=== PATIENT | male | born 1940 | race Caucasian/White ===

== ENCOUNTER 2018-07-02 15:58 | Inpatient (IN) ==
[2018-07-02] MEDS ORDERED: DILTIAZEM 25 MG/5 ML VIAL IV ONE (16:13)
[2018-07-02] MEDS ORDERED: DILTIAZEM 125 MG in DEXTROSE 5% IN WATER 100 ML IV SCH (16:15)
--- NOTE | 2018-07-02 16:15 | Emergency Department Note ---
General Adult HPI - General Chief complaint: Shortness of Breath/Dyspnea Stated complaint: cough since tuesday Time Seen by Provider: 07/02/18 16:07 Source: patient Mode of arrival: ambulatory - History of Present Illness HPI Narrative: This patient has had a nonproductive cough for the last several days some shortness of breath no chest pain is some swelling. He does have intermittent atrial fib is on Xarelto and has a heart rate of 154 although he was not really aware of that. - Related Data Home Medications Medication Instructions Recorded Confirmed rivaroxaban 20 mg tablet 20 mg PO QDAY 05/24/17 07/02/18 Previous Rx's Medication Instructions Recorded diltiazem CD 360 mg 360 mg PO QAM #90 cap 03/29/17 capsule,extended release 24 hr atorvastatin 20 mg tablet 20 mg PO QDAY #90 tab 08/25/17 levothyroxine 125 mcg tablet 125 mcg PO QDAY #90 tab 01/25/18 Allergies Allergy/AdvReac Type Severity Reaction Status Date / Time No Known Drug Allergies Allergy Verified 07/02/18 16:05 Review of Systems All systems ED: reviewed and negative except as stated. Past Medical History - Past Medical History [facility] Narrative: Medical History (Last Reviewed 01/27/17 @ 08:08 by Urbano Hopkins MD) Sleep apnea, unspecified (Chronic) Impetigo (Chronic) Hypothyroidism, acquired (Chronic) Hyperlipidemia (Chronic) Colonic polyp (Chronic) Bronchitis, acute (Chronic) URI (upper respiratory infection) (Chronic) Past Surgical History (Last Reviewed 01/27/17 @ 08:08 by Urbano Hopkins MD) History of appendectomy (Chronic) History of colonoscopy (Chronic 05/11/12) History of knee surgery (Chronic) Family History (Last Reviewed 01/27/17 @ 08:08 by Urbano Hopkins MD) Other Malignant neoplasm of breast Malignant neoplasm of ovary Medical history: Reports: atrial fibrillation - Social History smoking status: Former smoker Physical Exam Limitations: no limitations General appearance: alert Head: atraumatic Eye: Present: normal appearance ENT: normal exam Neck: Present: normal inspection Chest: Present: normal inspection Respiratory: Present: normal lung sounds bilaterally Cardiovascular: Present: tachycardia, irregular rhythm Abdominal: Present: soft. Absent: distention, tenderness Extremities: Present: pedal edema, pretibial edema Neurological: Present: alert Psychiatric: Present: normal affect Skin: Present: warm, dry Course Vital Signs Temperature 98.7 F 07/02/18 15:59 Pulse Rate 14 L 07/02/18 15:59 Respiratory Rate 20 07/02/18 15:59 Blood Pressure 113/75 07/02/18 15:59 Pulse Oximetry (%) 95 07/02/18 15:59 Temperature 98.7 F 07/02/18 15:59 Pulse Rate 106 H 07/02/18 18:31 Respiratory Rate 16 07/02/18 18:31 Blood Pressure 135/97 07/02/18 18:31 Pulse Oximetry (%) 97 07/02/18 18:31 Procedures - Cardioversion Pre-Shock Diagnosis: Atrial fibrillation Post-Shock Diagnosis: Sinus rhythm Sedation performed by: ED RN Joules - First Synchronized Shock: 100 (Unsuccessful) Joules - Second Synchronized Shock: 200 (Successful) Medical Decision Making - MDM Narrative Medical decision making narrative: Patient's lab work did show a BNP of 3700 with a negative troponin. Chest x-ray showed cardiomegaly but no pulmonary edema. I discussed the case with Dr. Batista after starting the patient on diltiazem. Because he is anticoagulated with Xarelto Dr. Batista felt we could probably go ahead and cardiovert him. That was done successfully with Versed and morphine sedation. He did require 200 J to convert him. He will be admitted to the hospital. - Lab Data Lab results reviewed: Yes I reviewed the patient's lab results. Result diagrams: 07/02/18 16:22 07/02/18 16:21 Lab Results 07/02/18 07/02/18 07/02/18 Range/Units 16:21 16:22 16:22 WBC 6.4 (4.5-11.0) K/mcL RBC 4.94 (4.50-5.90) M/mcL Hgb 15.7 (13.5-16.5) g/dL Hct 47.9 (41.0-55.0) % MCV 97.0 (80.0-100.0) fL MCH 31.9 (26.0-34.0) pg MCHC 32.8 (31.0-36.0) g/dL RDW 15.1 H (11.5-14.5) % Plt Count 184 (140-440) K/mcL MPV 9.6 (7.4-10.4) fL Gran % 54.2 (38.0-78.0) % Lymph % (Auto) 27.6 (15.5-49.0) % [place] % (Auto) 16.1 H (1.0-12.0) % Eos % (Auto) 1.6 (0.0-7.0) % Baso % (Auto) 0.5 (0.0-2.0) % Gran # 3.4 (1.8-8.0) K/mcL Lymph # (Auto) 1.8 (1.5-4.8) K/mcL [place] # (Auto) 1.0 H (0.1-0.9) K/mcL Eos # (Auto) 0.1 (0.0-0.7) K/mcL Baso # (Auto) 0 (0.0-0.3) K/mcL Sodium 137 (133-145) mmol/L Potassium 3.8 (3.3-5.1) mmol/L Chloride 102 (96-108) mmol/L Carbon Dioxide 22 (22-30) mmol/L Anion Gap 13.0 (8-16) BUN 16 (8-23) mg/dl Creatinine 1.0 (0.7-1.2) mg/dl GFR Calculation 73 Glucose 89 (70-105) mg/dL Calcium 8.9 (8.6-10.4) mg/dl Total Bilirubin 2.4 H (0.0-1.0) mg/dL AST 40 H (0-37) U/l ALT 23 (0-40) U/l Alkaline Phosphatase 235 H (39-117) U/L Troponin T < 0.01 (0-0.03) ng/ml NT-Pro-B Natriuret Pep 3719.0 H (0-450) pg/ml Total Protein 7.3 (5.9-8.4) gm/dL Albumin 3.8 (3.2-5.2) gm/dL Globulin 3.5 (2.2-3.7) gm/dL Albumin/Globulin Ratio 1.1 (1.0-2.3) - Radiology Data Radiology results reviewed: Yes I reviewed the patient's radiology results. Disposition Pt seen by [facility]/PA only: No Clinical Impression: Atrial fibrillation, Congestive heart failure Disposition: Xfer As Outpt/Obs ([facility]) Condition: Good Referrals: Urbano Hopkins MD [Primary Care Provider] - Time of Disposition: 19:04
--- NOTE | 2018-07-02 17:10 | XRay Report ---
INDICATION: Cough. Dyspnea. TECHNIQUE: AP chest x-ray,portable upright COMPARISON: Previous chest x-rays dated 01/30/2014, 11/06/2004 FINDINGS:There is cardiomegaly. Pulmonary vascularity is unremarkable. No pulmonary congestion or pulmonary edema. No focal pulmonary parenchymal infiltrate or mass. No evidence for pleural fluid. IMPRESSION: 1. Cardiomegaly 2. No pulmonary edema or pulmonary congestion. No focal parenchymal infiltrate Interpreted and Authenticated by: Jan Woods 07/02/18
[2018-07-02 17:18] LABS: Basophils # (Auto) 0 K/mcL (0.0-0.3); Basophils % (Auto) 0.5 % (0.0-2.0); Eosinophils # (Auto) 0.1 K/mcL (0.0-0.7); Eosinophils % (Auto) 1.6 % (0.0-7.0); Granulocytes % (Auto) 54.2 % (38.0-78.0); Lymphocytes # (Auto) 1.8 K/mcL (1.5-4.8); Lymphocytes % (Auto) 27.6 % (15.5-49.0); Mean Corpuscular HGB Conc 32.8 g/dL (31.0-36.0); Monocytes % (Auto) 16.1 % (1.0-12.0); Platelet Count 184 K/mcL (140-440); RBC 4.94 M/mcL (4.50-5.90); Red Cell Distribution Width 15.1 % (11.5-14.5)
[2018-07-02 18:13] LABS: ALT/SGPT 23 U/l (0-40); Albumin 3.8 gm/dL (3.2-5.2); Albumin/Globulin Ratio 1.1 (1.0-2.3); Alkaline Phosphatase 235 U/L (39-117); Blood Urea Nitrogen 16 mg/dl (8-23)
[2018-07-02] MEDS ORDERED: MIDAZOLAM 5 MG/5 ML VIAL IV ONE (18:34)
[2018-07-02] MEDS ORDERED: MIDAZOLAM 2 MG/2 ML VIAL ONE (18:39)
--- NOTE | 2018-07-02 20:28 | Internal Med History&Physical ---
Medical - H&P: [facility] Patient information: Note initiated : 07/02/18 at 8:24 pm Service Date, if different from initiated Date: [] Patient: Jd Díaz a 77 y/o M admitted on for cough since tuesday. Chief Complaint: [] History of present illness: Mr. Díaz is a 77 year old M ED with consistent dry cough for the past 5 days as kept him up at night. Patient has become so weak and when he has severe coughing episodes he gets short of breath. Thus family brought him in the ED. He does have some increased swelling in his legs but he could not tell me over what timeframe this has occurred. He does have some swelling in his legs at baseline, just states it feels its little bit worse now. And is becoming so weak and tired and sleeping a lot. In the ED is found to be in A. fib with heart rates in the 150s. He had an elevated proBNP of 3700 with the negative troponin, chest x-ray with cardiomegaly but no kailey edema. Patient has been on anticoagulation for A. fib and had been cardioverted in the past by his field service technician poultry in [place]. Patient was cardioverted in our ED and converted to normal sinus rhythm. I visited with him he is still sedated from the procedure but a little to be aroused participate in exam. The cough is been dry and he is present mention keeping him up at night. Has not slept well for a week. No sick contacts but his says he is susceptible to bronchitis and gets it every so often. He denies any heartburn or sour taste and smell in the morning or history of acid reflux. He is on his CPAP for obstructive sleep apnea. He denies chest pain fevers or chills nausea or vomiting. Review of Systems: Pertinent positives as above. Denies headache/fever/chills/nausea/vom iting/chest or abdominal pain/diarrhea. Remaining 10 point review of system reviewed negative Medical - H&P: PMH Medical history: Medical History (Last Reviewed 01/27/17 @ 08:08 by Urbano Hopkins MD) Sleep apnea, unspecified (Chronic) Impetigo (Chronic) Hypothyroidism, acquired (Chronic) Hyperlipidemia (Chronic) Colonic polyp (Chronic) Bronchitis, acute (Chronic) URI (upper respiratory infection) (Chronic) Obstructive sleep apnea Atrial fibrillation Past Surgical History (Last Reviewed 01/27/17 @ 08:08 by Urbano Hopkins MD) History of appendectomy (Chronic) History of colonoscopy (Chronic 05/11/12) History of knee surgery (Chronic) Family History (Last Reviewed 01/27/17 @ 08:08 by Urbano Hopkins MD) Other Malignant neoplasm of breast Malignant neoplasm of ovary Social History (Last Updated 01/23/18 @ 14:11 by Urbano Hopkins MD) Patient denies tobacco Drinks alcohol socially Lives with his at home Medical - H&P: Meds Home Medications Medication Instructions Recorded Confirmed Type diltiazem CD 360 mg 360 mg PO QAM #90 cap 03/29/17 07/02/18 Rx capsule,extended release 24 hr rivaroxaban 20 mg tablet 20 mg PO QDAY 05/24/17 07/02/18 History atorvastatin 20 mg tablet 20 mg PO QDAY #90 tab 08/25/17 07/02/18 Rx levothyroxine 125 mcg tablet 125 mcg PO QDAY #90 tab 01/25/18 07/02/18 Rx Allergies Allergy/AdvReac Type Severity Reaction Status Date / Time No Known Drug Allergies Allergy Verified 07/02/18 16:05 Medical - H&P: Exam - Constitutional Vitals: Temp Pulse Resp BP Pulse Ox 98.7 F 86 19 130/84 98 07/02/18 15:59 07/02/18 20:01 07/02/18 20:01 07/02/18 20:01 07/02/18 20:01 Exam: General: Drowsy but awakens post procedure, No acute Distress Eyes/N/T: EOMI, PEERL, Head/Neck: neck supple, normocephalic atraumatic CV: RRR, No murmurs, normal s1/s2 Pulm: Clear b/l, no wheezing/rhonchi/rales Abd: soft, nontender, +BS x4 Ext: no clubbing/cyanosis, 2+ bilateral lower extremity edema Neuro: Drowsy, no focal deficits, moves all extremities, CN 2-12 grossly intact, symmetrical strength b/l upper/lower, sensations intact b/l upper/lower Skin: warm/dry Medical - H&P: Reslt - Labs CBC & Chem 7: 07/02/18 16:22 07/02/18 16:21 Labs: Short CBC 07/02/18 Range/Units 16:22 WBC 6.4 (4.5-11.0) K/mcL Hgb 15.7 (13.5-16.5) g/dL Hct 47.9 (41.0-55.0) % Plt Count 184 (140-440) K/mcL BMP 07/02/18 16:21 Sodium 137 Potassium 3.8 Chloride 102 Carbon Dioxide 22 BUN 16 Creatinine 1.0 Glucose 89 Calcium 8.9 Cardiac Enzymes 07/02/18 Range/Units 16:22 Troponin T < 0.01 (0-0.03) ng/ml Liver Function 07/02/18 Range/Units 16:21 Total Bilirubin 2.4 H (0.0-1.0) mg/dL AST 40 H (0-37) U/l ALT 23 (0-40) U/l Alkaline Phosphatase 235 H (39-117) U/L Albumin 3.8 (3.2-5.2) gm/dL - Impressions Chest x-ray with cardiomegaly no kailey edema Medical - H&P: A/P - Narrative A/P Narrative: A: *Acute Bronchitis: likely precipitating factor to below *AFib rVR: Cardioverted to NSR in ED, rate now 80s *Acute likely chronic CHF: 2/2 above *Hypothyroidism *NEREYDA on CPAP *Obesity: * * P: -IV lasix -echo -cont home dilt, prn lopressor -check Mag/TSH -resp viral panel -ppi -home cpap - -ppx: xaralto
[2018-07-02] MEDS ORDERED: POTASSIUM CHLORIDE 20 MEQ TABLET PO PRN ×2 (21:13)
[2018-07-02] MEDS ORDERED: POLYETHYLENE GLYCOL 3350 17 GM PACKET PO PRN (21:13)
[2018-07-02] MEDS ORDERED: PROMETHAZINE 25 MG TABLET PO PRN (21:13)
[2018-07-02] MEDS ORDERED: IPRATROPIUM/ALBUTEROL 3 ML AMPUL.NEB NEB PRN (21:13)
[2018-07-02] MEDS ORDERED: MAGNESIUM SULFATE 2 GM/50 ML BAG IV PRN (21:13)
[2018-07-02] MEDS ORDERED: SENNOSIDES 1 TABLET PO PRN (21:13)
[2018-07-02] MEDS ORDERED: FUROSEMIDE 40 MG/4 ML VIAL IV ONE (21:13)
[2018-07-02] MEDS ORDERED: POTASSIUM CHLORIDE 40 MEQ in DEXTROSE 5% IN WATER 500 ML IV PRN (21:13)
[2018-07-02] MEDS ORDERED: LACTULOSE 20 GM/30 ML ORAL.SOL PO PRN (21:13)
[2018-07-02] MEDS ORDERED: ONDANSETRON 4 MG/2 ML VIAL IV PRN (21:13)
[2018-07-02] MEDS ORDERED: METOPROLOL TARTRATE 5 MG/5 ML VIAL IV PRN (21:25)
[2018-07-02] MEDS ORDERED: diphenhydrAMINE 25 MG CAPSULE PO ONE (21:30)
[2018-07-02] MEDS: METOPROLOL TARTRATE 5 MG/5 ML VIAL IV PRN ×2 (21:50→23:27)
[2018-07-02] MEDS: 0.9 % SODIUM CHLORIDE 10 ML SYRINGE IV SCH (21:57)
[2018-07-02] MEDS: DOCUSATE SODIUM 100 MG CAPSULE PO SCH (23:26)
[2018-07-02] MEDS: FAMOTIDINE 20 MG TABLET PO SCH (23:27)
[2018-07-03] MEDS: DILTIAZEM 125 MG in DEXTROSE 5% IN WATER 100 ML IV SCH ×4 (00:08→20:26)
[2018-07-03] MEDS ORDERED: DILTIAZEM 125 MG/25 ML VIAL IV ONE (00:20)
[2018-07-03 05:35] LABS: Basophils # (Auto) 0 K/mcL (0.0-0.3); Basophils % (Auto) 0.3 % (0.0-2.0); Eosinophils # (Auto) 0 K/mcL (0.0-0.7); Eosinophils % (Auto) 0.4 % (0.0-7.0); Granulocytes % (Auto) 72.2 % (38.0-78.0); Lymphocytes # (Auto) 1.1 K/mcL (1.5-4.8); Mean Corpuscular HGB Conc 32.6 g/dL (31.0-36.0); Monocytes # (Auto) 0.9 K/mcL (0.1-0.9); Monocytes % (Auto) 12.1 % (1.0-12.0); Platelet Count 171 K/mcL (140-440); RBC 4.94 M/mcL (4.50-5.90); Red Cell Distribution Width 15.1 % (11.5-14.5)
[2018-07-03] MEDS: 0.9 % SODIUM CHLORIDE 10 ML SYRINGE IV SCH ×3 (05:39→22:00)
[2018-07-03 06:02] LABS: ALT/SGPT 22 U/l (0-40); Albumin 3.7 gm/dL (3.2-5.2); Albumin/Globulin Ratio 1.1 (1.0-2.3); Alkaline Phosphatase 228 U/L (39-117); Bilirubin,Direct 0.7 mg/dL (0.0-0.3); Blood Urea Nitrogen 13 mg/dl (8-23); Gamma Glutamyl Transpeptidase 262 U/L (8-61)
--- NOTE | 2018-07-03 06:25 | Internal Med Progress Note ---
Medical - PN: Subj Patient information: Note initiated : 07/03/18 at 6:18 am Service Date, if different from initiated Date: [] Patient: Jd Díaz 77 y/o M admitted on 07/02/18 for cough since tuesday. Chief Complaint: [] Interval history: Mr. Díaz is a 77 year old M ED with consistent dry cough for the past 5 days as kept him up at night. Patient has become so weak and when he has severe coughing episodes he gets short of breath. Thus family brought him in the ED. He does have some increased swelling in his legs but he could not tell me over what timeframe this has occurred. He does have some swelling in his legs at baseline, just states it feels its little bit worse now. And is becoming so weak and tired and sleeping a lot. In the ED is found to be in A. fib with heart rates in the 150s. He had an elevated proBNP of 3700 with the negative troponin, chest x-ray with cardiomegaly but no kailey edema. Patient has been on anticoagulation for A. fib and had been cardioverted in the past by his java golden gate developer in [place]. Patient was cardioverted in our ED and converted to normal sinus rhythm. I visited with him he is still sedated from the procedure but a little to be aroused participate in exam. The cough is been dry and he is present mention keeping him up at night. Has not slept well for a week. No sick contacts but his says he is susceptible to bronchitis and gets it every so often. He denies any heartburn or sour taste and smell in the morning or history of acid reflux. He is on his CPAP for obstructive sleep apnea. He denies chest pain fevers or chills nausea or vomiting. 5/6 Cough last night difficult sleep. Feels a little bit better overall but Tired. Feels a swelling in his leg is improving already. Is on a diltiazem drip at 15 with a heart rate 90s to 100. No chest pain. Did have one episode of nausea vomiting while eating breakfast. Review of Systems: denies headache/fever/chills/chest or abdominal pain/diarrhea. Otherwise see above. - Constitutional Vitals: Vital Signs Temp Pulse Resp BP Pulse Ox 100.2 F H 102 H 26 H 124/96 95 07/03/18 04:00 07/02/18 22:55 07/03/18 05:14 07/03/18 05:14 07/03/18 05:14 Period Temp Pulse Resp BP Sys/Gutierres Pulse Ox Last 24 Hr 97.3 F-100.2 F 14-157 10-32 99-153/66-135 87-99 Intake and Output 07/02/18 07/03/18 07/03/18 21:59 05:59 13:59 Intake Total 502 756 Output Total 2400 Balance 502 -1644 Weight 99.11 kg Intake & Output: Intake & Output 07/02/18 07/03/18 07/03/18 21:59 05:59 13:59 Intake Total 502 756 Output Total 2400 Balance 502 -1644 Weight 99.11 kg Intake: IV 22 6 Cardizem 125 mg In Dextrose 5% 22 6 in Water 100 ml @ 5 MG/HR 5 mls /hr IV Q12H [facility] Rx#:[id number] Oral 480 750 Output: Void Amount 2400 Other: Meal Dinner Percent of Meal Consumed 100% Exam: General: alert, awake, No acute Distress Eyes/N/T: EOMI, , Head/Neck: neck supple, CV: irreg irreg, No murmurs, Pulm: Clear b/l, no wheezing/rhonchi/rales Abd: soft, nontender, +BS x4 Ext: no clubbing/cyanosis, 1+ bilateral lower extremity edema - improved Neuro: alert and awake, no focal deficits, moves all extremities, Skin: warm/dry Medical - PN: Obj Da - Labs CBC & Chem 7: 07/03/18 04:00 07/03/18 04:00 Labs: Abnormal Lab Results 07/03/18 07/03/18 07/02/18 04:00 04:00 16:22 RDW 15.1 H 15.1 H Lymph % (Auto) 15.0 L [place] % (Auto) 12.1 H 16.1 H Lymph # (Auto) 1.1 L [place] # (Auto) 1.0 H Glucose 125 H Phosphorus 2.4 L Total Bilirubin 2.5 H Direct Bilirubin 0.7 H GGT 262 H AST 38 H Alkaline Phosphatase 228 H Lactate Dehydrogenase 271 H NT-Pro-B Natriuret Pep 4454.0 H 07/02/18 16:21 RDW Lymph % (Auto) [place] % (Auto) Lymph # (Auto) [place] # (Auto) Glucose Phosphorus Total Bilirubin 2.4 H Direct Bilirubin GGT AST 40 H Alkaline Phosphatase 235 H Lactate Dehydrogenase NT-Pro-B Natriuret Pep 3719.0 H Meds: Medications Acetaminophen (Tylenol) 650 mg PO Q6HP PRN PRN Reason: PAIN/FEVER > 101 Albuterol/Ipratropium (Duoneb) 3 ml NEB Q4HP PRN PRN Reason: Shortness Of Breath Atorvastatin Calcium (Lipitor) 20 mg PO QDAY [facility] Diltiazem HCl (Cardizem Cd) 360 mg PO DAILY [facility] Docusate Sodium (Colace) 100 mg PO BID [facility] Last Admin: 07/02/18 23:26 Dose: 100 mg Documented by: Famotidine (Pepcid) 20 mg PO BID [facility] Last Admin: 07/02/18 23:27 Dose: 20 mg Documented by: Potassium Chloride 40 meq/ (Dextrose) 520 mls @ 130 mls/hr IV UD PRN PRN Reason: Potassium < 3 Magnesium Sulfate (Magnesium Sulfate) 2 gm in 50 mls @ 50 mls/hr IV UD PRN PRN Reason: Magnesium </= 1.6 Diltiazem HCl 125 mg/ Dextrose 125 mls @ 5 mls/hr IV Q12H [facility]; Protocol Last Titration: 07/03/18 01:17 Dose: 15 mg/hr, 15 mls/hr Documented by: Lactulose (Cephulac) 10 gm PO DAILYP PRN PRN Reason: Constipation Levothyroxine Sodium (Synthroid) 125 mcg PO ACB [facility] Metoprolol Tartrate (Lopressor) 5 mg IV Q2HP PRN PRN Reason: Tachyarrhythmias HR > 110 Last Admin: 07/02/18 23:27 Dose: 5 mg Documented by: Ondansetron HCl (Zofran) 4 mg IV Q4HP PRN PRN Reason: Nausea And Vomiting Polyethylene Glycol (Miralax) 17 gm PO DAILYP PRN PRN Reason: Constipation Potassium Chloride (Kdur) 40 meq PO UD PRN PRN Reason: Potssium is 3-3.5 Potassium Chloride (Kdur) 40 meq PO UD PRN PRN Reason: Potassium < 3 Promethazine HCl (Phenergan) 0 mg PO Q6HP PRN PRN Reason: Nausea And Vomiting Rivaroxaban (Xarelto) 20 mg PO QPMCC [facility] Senna (Senokot) 2 tab PO HSP PRN PRN Reason: Constipation Sodium Chloride (Saline Flush) 10 ml IV Q8 [facility] Last Admin: 07/03/18 05:39 Dose: 10 ml Documented by: Throat Lozenges (Cepacol) 1 lozenge PO PRN PRN PRN Reason: Sore Throat Medical - PN: A/P - Time Spent With Patient Total time spent is greater than 50% in coordination of care (as documented) at patient's floor/unit and/or counseling patient: - Narrative A/P Narrative: A: *Acute Bronchitis 2/2 (+) Parainfluenza: likely precipitating afib rvr / chf *AFib rVR: Cardioverted to NSR in ED, but went back into Afib after transfer to inpt *Acute on likely chronic CHF: 2/2 above *Hypothyroidism *NEREYDA on CPAP *Obesity: * * P: -IV lasix -echo -wean dilt gtt to home PO dilt and prn lopressor -ppi -home cpap - -ppx: Xarelto Medical - PN: Qual - VTE Deep Vein Thrombosis/Pulmonary Embolism Present on Admission: No
[2018-07-03] MEDS ORDERED: FUROSEMIDE 40 MG/4 ML VIAL IV ONE (07:37)
[2018-07-03] MEDS: LEVOTHYROXINE 125 MCG TABLET PO SCH (07:58)
[2018-07-03] MEDS: BENZONATATE 100 MG CAPSULE PO PRN ×3 (08:14→17:18)
[2018-07-03] MEDS: DILTIAZEM 180 MG CAP.XL.24H PO SCH (09:51)
[2018-07-03] MEDS: DOCUSATE SODIUM 100 MG CAPSULE PO SCH ×2 (09:51→20:26)
[2018-07-03] MEDS: FAMOTIDINE 20 MG TABLET PO SCH ×2 (09:51→20:25)
[2018-07-03] MEDS: ATORVASTATIN 20 MG TABLET PO SCH (09:53)
[2018-07-03] MEDS: BENZOCAINE/MENTHOL 1 LOZENGE PO PRN ×2 (10:37→21:14)
[2018-07-03] MEDS: ACETAMINOPHEN 325 MG TABLET PO PRN ×2 (10:53→17:19)
[2018-07-03] MEDS: METOPROLOL TARTRATE 5 MG/5 ML VIAL IV PRN ×3 (12:38→21:14)
[2018-07-03] MEDS ORDERED: RIVAROXABAN 20 MG TABLET PO SCH (17:30)
[2018-07-04] MEDS: BENZONATATE 100 MG CAPSULE PO PRN ×3 (00:30→16:00)
[2018-07-04] MEDS: METOPROLOL TARTRATE 5 MG/5 ML VIAL IV PRN ×2 (04:16→06:39)
[2018-07-04] MEDS: 0.9 % SODIUM CHLORIDE 10 ML SYRINGE IV SCH ×3 (05:33→12:36)
[2018-07-04 06:45] LABS: ALT/SGPT 23 U/l (0-40); Albumin 3.3 gm/dL (3.2-5.2); Alkaline Phosphatase 197 U/L (39-117); Bilirubin,Direct 0.9 mg/dL (0.0-0.3); Blood Urea Nitrogen 16 mg/dl (8-23); Gamma Glutamyl Transpeptidase 230 U/L (8-61); Uric Acid 6.5 mg/dL (2.5-8.0)
[2018-07-04] MEDS: DILTIAZEM 180 MG CAP.XL.24H PO SCH (07:31)
[2018-07-04] MEDS: LEVOTHYROXINE 125 MCG TABLET PO SCH (07:31)
[2018-07-04] MEDS: FAMOTIDINE 20 MG TABLET PO SCH (08:45)
[2018-07-04] MEDS: ATORVASTATIN 20 MG TABLET PO SCH (08:45)
[2018-07-04] MEDS ORDERED: METOPROLOL TARTRATE 25 MG TABLET PO SCH (09:00)
[2018-07-04] MEDS ORDERED: DILTIAZEM 125 MG in DEXTROSE 5% IN WATER 100 ML IV PRN (09:15)
[2018-07-04] MEDS: DOCUSATE SODIUM 100 MG CAPSULE PO SCH (09:23)
[2018-07-04] MEDS ORDERED: guaiFENesin/CODEINE 10 ML UDC PO PRN (10:07)
--- NOTE | 2018-07-04 11:33 | Internal Med Progress Note ---
Medical - PN: Subj Patient information: Note initiated : 07/04/18 at 11:31 am Service Date, if different from initiated Date: [] Patient: Jd Díaz 77 y/o M admitted on 07/02/18 for cough since tuesday. Chief Complaint: [] Interval history: Mr. Díaz is a 77 year old M ED with consistent dry cough for the past 5 days as kept him up at night. Patient has become so weak and when he has severe coughing episodes he gets short of breath. Thus family brought him in the ED. He does have some increased swelling in his legs but he could not tell me over what timeframe this has occurred. He does have some swelling in his legs at baseline, just states it feels its little bit worse now. And is becoming so weak and tired and sleeping a lot. In the ED is found to be in A. fib with heart rates in the 150s. He had an elevated proBNP of 3700 with the negative troponin, chest x-ray with cardiomegaly but no kailey edema. Patient has been on anticoagulation for A. fib and had been cardioverted in the past by his cns in [place]. Patient was cardioverted in our ED and converted to normal sinus rhythm. I visited with him he is still sedated from the procedure but a little to be aroused participate in exam. The cough is been dry and he is present mention keeping him up at night. Has not slept well for a week. No sick contacts but his says he is susceptible to bronchitis and gets it every so often. He denies any heartburn or sour taste and smell in the morning or history of acid reflux. He is on his CPAP for obstructive sleep apnea. He denies chest pain fevers or chills nausea or vomiting. 5/6 Cough last night difficult sleep. Feels a little bit better overall but Tired. Feels a swelling in his leg is improving already. Is on a diltiazem drip at 15 with a heart rate 90s to 100. No chest pain. Did have one episode of nausea vomiting while eating breakfast. 07/04-case discussed with [place] [facility] patient's primary cns is In light of persistent atrial fibrillation with RVR not responding to diltiazem/beta jerry. Doctor Of Medicine Recommends loading amiodarone and using digoxin if inadequate rate control in addition to low-dose diuretics to improve right heart strain. Also recommends follow up as an outpatient unless patient continues to be in RVR that would require transfer to [facility]. Family at bedside. Reviewed echocardiogram with EF 20%. - Constitutional Vitals: Vital Signs Temp Pulse Resp BP Pulse Ox 99.0 F 71 21 134/90 93 07/04/18 06:43 07/04/18 06:43 07/04/18 10:00 07/04/18 06:43 07/04/18 06:45 Period Temp Pulse Resp BP Sys/Gutierres Pulse Ox Last 24 Hr 97.1 F-101.8 F 43-104 11-31 93-134/63-90 84-95 Intake and Output 07/03/18 07/04/18 07/04/18 21:59 05:59 13:59 Intake Total 681 50 360 Output Total 0 200 150 Balance 681 -150 210 Weight 215 lb 8 oz Intake & Output: Intake & Output 07/03/18 07/04/18 07/04/18 21:59 05:59 13:59 Intake Total 681 50 360 Output Total 0 200 150 Balance 681 -150 210 Weight 215 lb 8 oz Intake: IV 21 0 Cardizem 125 mg In Dextrose 5% 21 0 in Water 100 ml @ 5 MG/HR 5 mls /hr IV Q12H [facility] Rx#:[id number] Oral 660 50 360 Output: Void Amount 0 200 150 Other: Meal Dinner Breakfast Percent of Meal Consumed 25% 75% Feeding Ability Independent Urine Appearance Clear Clear Urine Color Light Ligia Bright Yellow Urine Odor Normal Stool Size Moderate # Voids 1 General appearance: no acute distress Exam: Alert oriented nonlabored breathing Atrial fibrillation with rapid ventricular rate on telemetry diminished breath sounds No anxiety Medical - PN: Obj Da - Labs CBC & Chem 7: 07/03/18 04:00 07/04/18 03:45 Labs: Abnormal Lab Results 07/04/18 07/03/18 07/03/18 03:45 04:00 04:00 RDW 15.1 H Lymph % (Auto) 15.0 L [place] % (Auto) 12.1 H Lymph # (Auto) 1.1 L [place] # (Auto) Glucose 65 L 125 H Phosphorus 2.4 L Total Bilirubin 2.7 H 2.5 H Direct Bilirubin 0.9 H 0.7 H GGT 230 H 262 H AST 51 H 38 H Alkaline Phosphatase 197 H 228 H Lactate Dehydrogenase 306 H 271 H NT-Pro-B Natriuret Pep 4454.0 H 07/02/18 07/02/18 16:22 16:21 RDW 15.1 H Lymph % (Auto) [place] % (Auto) 16.1 H Lymph # (Auto) [place] # (Auto) 1.0 H Glucose Phosphorus Total Bilirubin 2.4 H Direct Bilirubin GGT AST 40 H Alkaline Phosphatase 235 H Lactate Dehydrogenase NT-Pro-B Natriuret Pep 3719.0 H Meds: Medications Acetaminophen (Tylenol) 650 mg PO Q6HP PRN PRN Reason: PAIN/FEVER > 101 Last Admin: 07/03/18 17:19 Dose: 650 mg Documented by: Albuterol/Ipratropium (Duoneb) 3 ml NEB Q4HP PRN PRN Reason: Shortness Of Breath Atorvastatin Calcium (Lipitor) 20 mg PO QDAY [facility] Last Admin: 07/04/18 08:45 Dose: 20 mg Documented by: Benzonatate (Tessalon) 200 mg PO TIDP PRN PRN Reason: Cough Last Admin: 07/04/18 04:03 Dose: 200 mg Documented by: Diltiazem HCl (Cardizem Cd) 360 mg PO DAILY [facility] Last Admin: 07/04/18 07:31 Dose: 360 mg Documented by: Docusate Sodium (Colace) 100 mg PO BID [facility] Last Admin: 07/04/18 09:23 Dose: Not Given Documented by: Famotidine (Pepcid) 20 mg PO BID [facility] Last Admin: 07/04/18 08:45 Dose: 20 mg Documented by: Guaifenesin/Codeine Phosphate (Robitussin Ac) 10 ml PO Q4HP PRN PRN Reason: Cough Potassium Chloride 40 meq/ (Dextrose) 520 mls @ 130 mls/hr IV UD PRN PRN Reason: Potassium < 3 Magnesium Sulfate (Magnesium Sulfate) 2 gm in 50 mls @ 50 mls/hr IV UD PRN PRN Reason: Magnesium </= 1.6 Diltiazem HCl 125 mg/ Dextrose 125 mls @ 5 mls/hr IV Q12HP PRN; Protocol PRN Reason: Tachyarrhythmias Lactulose (Cephulac) 10 gm PO DAILYP PRN PRN Reason: Constipation Levothyroxine Sodium (Synthroid) 125 mcg PO ACB [facility] Last Admin: 07/04/18 07:31 Dose: 125 mcg Documented by: Metoprolol Tartrate (Lopressor) 5 mg IV Q2HP PRN PRN Reason: Tachyarrhythmias HR > 110 Last Admin: 07/04/18 06:39 Dose: 5 mg Documented by: Metoprolol Tartrate (Lopressor) 25 mg PO BID [facility] Last Admin: 07/04/18 09:23 Dose: 25 mg Documented by: Ondansetron HCl (Zofran) 4 mg IV Q4HP PRN PRN Reason: Nausea And Vomiting Last Admin: 07/03/18 07:32 Dose: 4 mg Documented by: Polyethylene Glycol (Miralax) 17 gm PO DAILYP PRN PRN Reason: Constipation Potassium Chloride (Kdur) 40 meq PO UD PRN PRN Reason: Potssium is 3-3.5 Last Admin: 07/03/18 06:54 Dose: 40 meq Documented by: Potassium Chloride (Kdur) 40 meq PO UD PRN PRN Reason: Potassium < 3 Promethazine HCl (Phenergan) 0 mg PO Q6HP PRN PRN Reason: Nausea And Vomiting Rivaroxaban (Xarelto) 20 mg PO QPMCC [facility] Last Admin: 07/03/18 17:18 Dose: 20 mg Documented by: Senna (Senokot) 2 tab PO HSP PRN PRN Reason: Constipation Sodium Chloride (Saline Flush) 10 ml IV Q8 [facility] Last Admin: 07/04/18 06:40 Dose: 10 ml Documented by: Throat Lozenges (Cepacol) 1 lozenge PO PRN PRN PRN Reason: Sore Throat Last Admin: 07/03/18 21:14 Dose: 1 lozenge Documented by: Medical - PN: A/P - Time Spent With Patient Total time spent is greater than 50% in coordination of care (as documented) at patient's floor/unit and/or counseling patient: 25 - 35 minutes - Narrative A/P Narrative: * A. fib with RVR-[place] cardiology recommends initiation of amiodarone and if required digoxin for rate control in addition to continuing diltiazem. Echocardiogram reviewed by cns * NYHA class III systolic heart failure with EF 20%. Case discussed with patient's primary cns at [place]. Recommends diuresing. Also jay mmend outpatient follow-up with cardiology * Acute bronchitis secondary to parainfluenza-continue symptomatic management * Anticoagulation on rivaroxaban * Hyperlipidemia continue statin * Hypothyroidism continue thyroxine * Full code * Prophylaxis rivaroxaban Plan * Start amiodarone load and if required digoxin * Continue diltiazem * Gentle diuresis * Pre-existing medical condition management as above * review with [place] cardiology if inadequate rate control Medical - PN: Qual - VTE Deep Vein Thrombosis/Pulmonary Embolism Present on Admission: No
[2018-07-04] MEDS ORDERED: AMIODARONE 360 MG in PREMIX 1 BAG IV SCH ×2 (12:00→18:00)
[2018-07-04] MEDS: FUROSEMIDE 20 MG/2 ML VIAL IV SCH ×2 (12:36→16:27)
[2018-07-04] MEDS: DILTIAZEM 125 MG in DEXTROSE 5% IN WATER 100 ML IV SCH (12:57)
[2018-07-04] MEDS: ACETAMINOPHEN 325 MG TABLET PO PRN (13:10)
[2018-07-04] MEDS: BENZOCAINE/MENTHOL 1 LOZENGE PO PRN (13:12)
[2018-07-04] MEDS ORDERED: NITROGLYCERIN 0.4 MG TAB.SUBL SL ONE ×2 (14:53→14:54)
--- NOTE | 2018-07-04 14:54 | XRay Report ---
INDICATION: Chest pain TECHNIQUE: AP chest x-ray,portable upright COMPARISON: Previous chest x-rays dated 07/02/2018, 01/30/2014, 11/06/2004 FINDINGS:There is cardiomegaly. This is unchanged since 07/02/2018 but nonspecific and likely worse since 01/30/2014. Pericardial effusion cannot be excluded based on this examination. Pulmonary vascularity is unremarkable. No pulmonary edema. No pulmonary congestion. No acute or focal pulmonary parenchymal infiltrate or mass. There is no pleural fluid. IMPRESSION: 1. Cardiomegaly. Pericardial effusion is not excluded based on this examination 2. No pulmonary edema or pulmonary congestion. No focal pulmonary parenchymal infiltrate Interpreted and Authenticated by: Jan Woods 07/04/18
[2018-07-04] MEDS ORDERED: 0.9 % SODIUM CHLORIDE 1,000 ML IV ONE ×2 (15:00→15:30)
[2018-07-04] MEDS ORDERED: ASPIRIN 81 MG TAB.CHEW CHEWED ONE (15:01)
[2018-07-04] MEDS ORDERED: NITROGLYCERIN 0.4 MG TAB.SUBL SL PRN (15:06)
[2018-07-04] MEDS ORDERED: ASPIRIN 81 MG TAB.CHEW ONE (15:08)
[2018-07-04] MEDS ORDERED: ATROPINE SULFATE 1 MG/10 ML SYRINGE IV ONE ×2 (15:10→15:12)
[2018-07-04] MEDS ORDERED: NOREPINEPHRINE BITARTRATE 16 MG in 0.9 % SODIUM CHLORIDE 234 ML IV SCH (15:15)
[2018-07-04] MEDS ORDERED: CALCIUM GLUCONATE 9.3 MEQ in DEXTROSE 5% IN WATER 50 ML IV ONE (15:30)
[2018-07-04 15:50] LABS: Creatine Kinase MB 3.4 ng/ml (0-4.9)
--- NOTE | 2018-07-04 16:14 | Transfer Summary ---
Transfer Discharge Sum: Prov Patient information: Note initiated : 07/04/18 at 4:10 pm Service Date, if different from initiated Date: [] Patient: Jd Díaz 77 y/o M admitted on 07/02/18 for cough since tuesday. Chief Complaint: [] Date of admission: 07/02/18 20:50 Discharge Date: 07/04/18 Primary care physician: Urbano Hopkins Consults: 07/02/18 Consult to Physician [CONS] Stat Comment: Consulting Provider: Elias Batista Reason For Exam: Physician to Consult Receiving physician/facility: [facility] Transfer Discharge Sum: Med - Medications Active and Home Medications: Home Medications diltiazem CD 360 mg capsule,extended release 24 hr 360 mg PO QAM #90 cap 03/29/17 [Rx Confirmed 07/02/18] rivaroxaban 20 mg tablet 20 mg PO QDAY 05/24/17 [History Confirmed 07/02/18] atorvastatin 20 mg tablet 20 mg PO QDAY #90 tab 08/25/17 [Rx Confirmed 07/02/18] levothyroxine 125 mcg tablet 125 mcg PO QDAY #90 tab 01/25/18 [Rx Confirmed 07/02/18] Active Medications Acetaminophen (Tylenol) 650 mg PO Q6HP PRN PRN Reason: PAIN/FEVER > 101 Last Admin: 07/04/18 13:10 Dose: 650 mg Documented by: Albuterol/Ipratropium (Duoneb) 3 ml NEB Q4HP PRN PRN Reason: Shortness Of Breath Amiodarone HCl (Cordarone) 200 mg PO [facility] Atorvastatin Calcium (Lipitor) 20 mg PO QDAY [facility] Last Admin: 07/04/18 08:45 Dose: 20 mg Documented by: Benzonatate (Tessalon) 200 mg PO TIDP PRN PRN Reason: Cough Last Admin: 07/04/18 04:03 Dose: 200 mg Documented by: Diltiazem HCl (Cardizem Cd) 360 mg PO DAILY [facility] Last Admin: 07/04/18 07:31 Dose: 360 mg Documented by: Docusate Sodium (Colace) 100 mg PO BID [facility] Last Admin: 07/04/18 09:23 Dose: Not Given Documented by: Famotidine (Pepcid) 20 mg PO BID [facility] Last Admin: 07/04/18 08:45 Dose: 20 mg Documented by: Furosemide (Lasix) 20 mg IV BIDD [facility] Last Admin: 07/04/18 12:36 Dose: 20 mg Documented by: Guaifenesin/Codeine Phosphate (Robitussin Ac) 10 ml PO Q4HP PRN PRN Reason: Cough Potassium Chloride 40 meq/ (Dextrose) 520 mls @ 130 mls/hr IV UD PRN PRN Reason: Potassium < 3 Magnesium Sulfate (Magnesium Sulfate) 2 gm in 50 mls @ 50 mls/hr IV UD PRN PRN Reason: Magnesium </= 1.6 Diltiazem HCl 125 mg/ Dextrose 125 mls @ 5 mls/hr IV Q12HP PRN; Protocol PRN Reason: Tachyarrhythmias AMIODARONE 360 mg/ Premix 200 mls @ 33.33 mls/hr IV .Q6H1M [facility]; Protocol Stop: 07/04/18 18:00 Last Titration: 07/04/18 14:45 Dose: 0 mg/min, 0 mls/hr Documented by: AMIODARONE 360 mg/ Premix 200 mls @ 16.67 mls/hr IV .Q12H [facility]; Protocol Stop: 07/05/18 11:59 Norepinephrine Bitartrate 16 (mg/ Sodium Chloride) 250 mls @ 9.38 mls/hr IV Q24H [facility]; Protocol Calcium Gluconate 9.3 meq/ (Dextrose) 70 mls @ 100 mls/hr IV ONCE ONE Stop: 07/04/18 16:11 Lactulose (Cephulac) 10 gm PO DAILYP PRN PRN Reason: Constipation Levothyroxine Sodium (Synthroid) 125 mcg PO ACB [facility] Last Admin: 07/04/18 07:31 Dose: 125 mcg Documented by: Metoprolol Tartrate (Lopressor) 5 mg IV Q2HP PRN PRN Reason: Tachyarrhythmias HR > 110 Last Admin: 07/04/18 06:39 Dose: 5 mg Documented by: Metoprolol Tartrate (Lopressor) 25 mg PO BID [facility] Last Admin: 07/04/18 09:23 Dose: 25 mg Documented by: Nitroglycerin (Nitrostat) 0.4 mg SL Q5M PRN PRN Reason: Chest Pain Ondansetron HCl (Zofran) 4 mg IV Q4HP PRN PRN Reason: Nausea And Vomiting Last Admin: 07/03/18 07:32 Dose: 4 mg Documented by: Polyethylene Glycol (Miralax) 17 gm PO DAILYP PRN PRN Reason: Constipation Potassium Chloride (Kdur) 40 meq PO UD PRN PRN Reason: Potssium is 3-3.5 Last Admin: 07/03/18 06:54 Dose: 40 meq Documented by: Potassium Chloride (Kdur) 40 meq PO UD PRN PRN Reason: Potassium < 3 Promethazine HCl (Phenergan) 0 mg PO Q6HP PRN PRN Reason: Nausea And Vomiting Rivaroxaban (Xarelto) 20 mg PO QPMCC [facility] Last Admin: 07/03/18 17:18 Dose: 20 mg Documented by: Senna (Senokot) 2 tab PO HSP PRN PRN Reason: Constipation Sodium Chloride (Saline Flush) 10 ml IV Q8 [facility] Last Admin: 07/04/18 12:36 Dose: 10 ml Documented by: Throat Lozenges (Cepacol) 1 lozenge PO PRN PRN PRN Reason: Sore Throat Last Admin: 07/04/18 13:12 Dose: 1 lozenge Documented by: Transfer Discharge Sum: Hosp Hospital course: Transfer diagnoses * Cardiogenic shock-(? ACS) continue crystalloids/pressors. Keep MAP ~65 * Chest pain/unstable angina- Cardiac enzymes first set negative/cardiology consult and transfer to tertiary Center for further management. Status post aspirin/statin/nitrate/morphine, anticoagulated on rivaroxaban * A. fib with RVR -started on amiodarone as per [facility] recommendations. * NYHA class III systolic heart failure with EF 20%. Case discussed with patient's primary map and chart mounter at [facility]. Transfer to tertiary Center * Acute bronchitis secondary to parainfluenza-continue symptomatic management * Anticoagulation on rivaroxaban * Hyperlipidemia continue statin * Hypothyroidism continue thyroxine Brief hospital course Mr. Díaz is a 77 year old M ED with consistent dry cough for the past 5 days as kept him up at night. Patient has become so weak and when he has severe coughing episodes he gets short of breath. Thus family brought him in the ED. He does have some increased swelling in his legs but he could not tell me over what timeframe this has occurred. He does have some swelling in his legs at baseline, just states it feels its little bit worse now. And is becoming so weak and tired and sleeping a lot. In the ED is found to be in A. fib with heart rates in the 150s. He had an elevated proBNP of 3700 with the negative troponin, chest x-ray with cardiomegaly but no kailey edema. Patient has been on anticoagulation for A. fib and had been cardioverted in the past by his map and chart mounter in [place]. Patient was cardioverted in our ED and converted to normal sinus rhythm. I visited with him he is still sedated from the procedure but a little to be aroused participate in exam. The cough is been dry and he is present mention keeping him up at night. Has not slept well for a week. No sick contacts but his says he is susceptible to bronchitis and gets it every so often. He denies any heartburn or sour taste and smell in the morning or history of acid reflux. He is on his CPAP for obstructive sleep apnea. He denies chest pain fevers or chills nausea or vomiting. 5/6 Cough last night difficult sleep. Feels a little bit better overall but Tired. Feels a swelling in his leg is improving already. Is on a diltiazem drip at 15 with a heart rate 90s to 100. No chest pain. Did have one episode of nausea vomiting while eating breakfast. 07/04-case discussed with [facility] patient's primary map and chart mounter is In light of persistent atrial fibrillation with RVR not responding to diltiazem/beta jerry. English Language Learner Teacher Recommends loading amiodarone and using digoxin if inadequate rate control in addition to low-dose diuretics to improve right heart strain. Also recommends follow up as an outpatient unless patient continues to be in RVR that would require transfer to [place]. Family at bedside. Reviewed echocardiogram with EF 20%. 3:35- patient was continued on amiodarone drip with great response and resolution of RVR with heart rate down to 60s. However patient started complains of crushing substernal chest pain along with dropping blood pressures. Heart rate in mid 40s. Atropine 2 mg administered along with 2 g calcium. Started on norepinephrine. 2 L and his bolus. Stat EKG no significant ST changes however persistent chest pain. Morphine/aspirin/sublingual nitrate was administered. Systolics improved to mid 80s after bolus/norepinephrine drip Amiodarone drip held Case discussed with patient and family want patient to be transferred to tertiary Center Await callback from [place] [facility] 4:11 case discussed with [place] [facility]. Patient will be transferred via air ambulance for further evaluation. Prior to transfer heart rate mid 60s status post atropine/Levophed drip with sats mid 90s on 6 L oxygen, troponin negative, EKG no significant ST changes, chest x-ray no evidence of pulmonary edema. Highly appreciate [facility] in accepting this patient for further management. Continue pressors/amiodarone - Time Spent with Patient Total time spent providing and/or coordinating transfer services: Greater than 30 minutes Transfer Discharge Sum: Exam - Constitutional Vitals: Vital Signs Temp Pulse Pulse Resp BP BP Pulse Ox 07/04/18 13:00 19 94 07/04/18 12:54 99.0 F 80 18 112/75 92 07/04/18 10:00 21 07/04/18 06:45 93 07/04/18 06:43 99.0 F 71 24 H 134/90 93 07/04/18 05:00 72 24 H 95 07/04/18 04:02 72 21 94 07/04/18 04:01 97.8 F 57 L 21 93/79 92 07/04/18 04:00 18 07/04/18 03:00 43 L 14 94 07/04/18 02:00 46 L 11 L 95 07/04/18 01:00 72 25 H 95 07/04/18 00:33 92 07/04/18 00:19 89 L 07/04/18 00:18 90 07/04/18 00:16 99 H 24 H 85 L 07/04/18 00:15 98.2 F 76 26 H 107/72 84 L 07/04/18 00:00 28 H 07/03/18 23:00 24 H 07/03/18 22:00 24 H 07/03/18 21:00 27 H 07/03/18 20:17 25 H 93/74 07/03/18 20:00 97.1 F 19 93/74 90 07/03/18 19:39 104 H 90 07/03/18 19:00 21 07/03/18 18:00 25 H 07/03/18 17:00 31 H Intake and Output 07/04/18 07/04/18 07/04/18 05:59 13:59 21:59 Intake Total 50 360 72 Output Total 200 150 Balance -150 210 72 Intake: IV 0 72 Nexterone 360 mg In Premix 1 72 Bag @ 1 MG/MIN 33.33 mls/hr IV .Q6H1M [facility] Rx#:[id number] Cardizem 125 mg In Dextrose 5% 0 in Water 100 ml @ 5 MG/HR 5 mls /hr IV Q12H [facility] Rx#:[id number] Oral 50 360 Output: Void Amount 200 150 Other: Meal Breakfast Percent of Meal Consumed 75% Feeding Ability Independent Urine Appearance Clear Clear Urine Color Light Ligia Bright Yellow Urine Odor Normal Transfer Discharge Sum: A/P - Plan Functional capacity at transfer: bed bound Overall status at transfer: patient is not back to baseline Disposition: Xfer [facility] Quality Measure Queries - VTE Deep Vein Thrombosis/Pulmonary Embolism Present on Admission: No
[2018-07-05] MEDS ORDERED: AMIODARONE HCL 200 MG TABLET PO SCH (12:00)
== END 2018-07-04 16:55 | disposition short-term general hospital (02) | DRG 291 ==
LOC: ED 15:58 → ICU 20:45
PROVIDERS: ADMIT Internal Medicine; ATTEND Internal Medicine